=== PATIENT | female | born 1960 | race Hispanic/Latino ===

== ENCOUNTER → 2019-08-17 | Outpatient (CLI) | payer OTHER ==
[~2019-08-17] VITALS: Ht 157.5 cm; Wt 96.2 kg
[~2019-08-17] MED LIST: REGADENOSON 0.4 MG/5 ML PF SYG IVP SCH
== END | disposition home or self-care (01) ==
LOC: SHCH 08:32
PROVIDERS: ATTEND Internal Medicine Cardiovascular Disease
DX: I25.10 Atherosclerotic heart disease of native coronary artery without angina pectoris (principal)
CPT/HCPCS: 78452; 93017; 96374; A9500 ×2; J2785

== ENCOUNTER 2023-04-29 21:20 | Emergency (ER) | payer OTHER ==
[~2023-04-29] VITALS: Ht 157.5 cm; Wt 93.4 kg
[2023-04-29 21:22] VITALS: BP 174/96
[2023-04-29 22:12] LABS: BASOPHILS % (AUTO) 0.4 % (0.0-5.0); EOSINOPHILS % (AUTO) 1.7 % (0.0-8.0); HEMATOCRIT 37.2 % (36-48); LYMPHOCYTES % (AUTO) 27.4 % (21.0-51.0); MEAN CORPUSCULAR HEMOGLOBIN 28.6 pg (27.0-33.0); MEAN CORPUSCULAR HGB CONC 33.9 g/dL (32.0-36.0); MEAN CORPUSCULAR VOLUME 84.5 fL (79-99); MONOCYTES % (AUTO) 5.9 % (3.0-13.0); NEUTROPHILS % (AUTO) 64.4 % (40.0-77.0); PLATELET COUNT (AUTO) 204 K/uL (130-400); RED CELL DISTRIBUTION WIDTH 13.2 % (11.0-15.5); WHITE BLOOD COUNT (AUTO) 13.3 K/uL (4.8-10.8)
[2023-04-29 22:23] LABS: CREATININE 0.8 mg/dL (0.5-1.5); POTASSIUM 3.8 mmol/L (3.5-5.1)
[2023-04-29 22:28] LABS: ALBUMIN 3.4 g/dL (3.5-5.0); TOTAL PROTEIN, SERUM 7.8 g/dL (6.0-8.3)
[2023-04-29 22:28] LABS: APPEARANCE,URINE CLEAR (CLEAR); BILIRUBIN,URINE NEGATIVE (NEGATIVE); COLOR,URINE LIGHT-YELLOW (YELLOW); GLUCOSE, URINE (UA) >=1000 mg/dL (NEGATIVE); KETONES,URINE NEGATIVE (NEGATIVE); LEUKOCYTE ESTERASE ,URINE 250 Leu/uL (NEGATIVE); NITRATE,URINE NEGATIVE (NEGATIVE); OCCULT BLOOD,URINE NEGATIVE (NEGATIVE); PROTEIN,URINE NEGATIVE (NEGATIVE); UROBILINOGEN,URINE 0.2 mg/dL (0.2-1.0)
[2023-04-29 22:31] LABS: BACTERIA,URINE RARE /HPF (None Seen); SQUAMOUS EPITHELIAL CELL,UR FEW /HPF (0-2)
[2023-04-29] MEDS ORDERED: SULF1TAB42 PO (23:12)
[2023-04-29] MEDS ORDERED: CEFTRIAXONE 1G VIAL IVPB ONE (23:30)
== END 2023-04-29 23:42 | disposition home or self-care (01) ==
LOC: EDH 21:20
DX: N39.0 Urinary tract infection, site not specified (principal); E11.9 Type 2 diabetes mellitus without complications; E78.00 Pure hypercholesterolemia, unspecified; I10 Essential (primary) hypertension; Z88.0 Allergy status to penicillin
CPT/HCPCS: 99284; 96365; 80053; 85025; 87088; 81001; 36415; J0696

== ENCOUNTER 2024-12-25 11:27 | Emergency (ER) | payer OTHER ==
[~2024-12-25] VITALS: Ht 157.5 cm; Wt 98.9 kg
[~2024-12-25 11:27] MED LIST changes: -REGADENOSON 0.4 MG/5 ML PF SYG IVP SCH; +SULF1TAB42 PO
--- NOTE | 2024-12-25 11:53 | ERN ---
General Chief Complaint: Mechanical Fall Stated Complaint: MECHANICAL FALL,MULTIPLE COMPLAINTS Time Seen by MD: 11:29 Time Seen by Midlevel: 11:29 Source: patient History of Present Illness Initial Comments The patient is a 64-year-old female with a past medical history of seizures on topiramate presenting to the emergency department following a fall. The patient's states the fall was unwitnessed. She was in her room walking when she became slightly lightheaded and fell hitting the back of her head. The patient remembers the entire event. Family quickly came to her aid and she was found in the floor. No seizure-like activities reported. Patient reports taking her seizure medication as prescribed. Denies seeing a neurologist recently. Her last seizure was approximately four months ago. On arrival she states she has pain to her entire left side of her body. She also reports pain to her head and neck. Allergies: Coded Allergies: Iodinated Contrast Media (Unverified Allergy, Unknown, 12/25/24) penicillin V (Unverified Allergy, Unknown, 08/16/19) Home Meds Active Scripts Sulfamethoxazole/Trimethoprim (Bactrim Ds Tablet) 1 Each Tablet, 1 TAB PO BID for 7 Days, #14 TAB 0 Refills Prov:JOSEPARTH Rodriges DEMOLITIONIST 04/29/23 Past Medical History Past Medical History: Diabetes-Type II, High Cholesterol, Heart Disease, Hypertension, Seizure Medical History Other: HX OF BACK PAIN, NEUROPATHY Past Surgical History: Hysterectomy, Other Surgical History Other: HX OF BACK PAIN, WRIST, SHOULDER ROS Dictation CONSTITUTIONAL: Negative except for HPI HEAD/FACE: Negative except for HPI EENT: Negative except for HPI RESPIRATORY: Negative except for HPI GASTROINTESTINAL/ABDOMINAL: Negative except for HPI GENITOURINARY: Negative except for HPI MUSCULOSKELETAL: Negative except for HPI INTEGUMENTARY: Negative except for HPI NEUROLOGICAL/PSYCH: Negative except for HPI HEMATOLOGIC/LYMPHATIC: Negative except for HPI All Systems Negative, Except as noted above. 13 point review of systems assessed and all negative except for above. Physical Exam Physical Exam Dictation Vital Signs reviewed General Appearance: Alert, oriented x 3, no acute distress, morbidly obese Head and Face: non-traumatic. Eyes: PERRL, pink conjunctivas, eyelid no trauma, anterior chamber with arcus senilis. Ears: Pinnas intact and no signs of trauma or erythema ear canals clear and no discharge TM no erythema Nose: No discharge, no bleeding. Oropharynx: Mouth normal, tongue pink, pharynx clear,no erythema, tonsils no exudates, no abscesses noted, mucous membrane moist Neck: Supple, non-tender, no thyromegaly, no masses, no JVD, no bruits Breast:Deferred Chest:No tenderness, no crepitus, no paradoxical movement, no retractions Lungs:Clear, well-ventilated, symmetric, no rales, no wheezing, no rhonchi, no stridor, good breath sounds bilaterally Heart: Regular rate, regular rhythm, no murmur, no gallops Vascular: no peripheral edema, Abdomen: Soft, positive bowel sounds, nondistended, no guarding, nontender, no rebound, no masses no hepatomegaly, no splenomegaly, no Burgos's sign, no hernias. Rectal: Deferred Genital: Deferred Neurological: Normal speech, motor function intact, sensory function intact Musculoskeletal: Neck nontender, full range of motion, back nontender, full range of motion, Extremities: Tenderness overlying the anterior left shoulder, limited range of motion secondary to pain, tenderness over the left lateral wrist and at the base of the 1st digit of the left hand, range of motion restricted secondary to pain, sensation is intact to left upper extremity Skin: Color pink, dry, no turgor, no rash, no lacerations, no abrasions, no contusions. Lymphatic: Deferred Results Laboratory and Microbiology Lab and Micro Result Laboratory Tests Test 12/25/24 14:15 12/25/24 14:42 White Blood Count 7.9 K/uL (4.8-10.8) Red Blood Count 4.39 MIL/uL (4.00-5.50) Hemoglobin 12.1 g/dL (12.0-16.0) Hematocrit 36.9 % (36-48) Mean Corpuscular Volume 84.1 fL (79-99) Mean Corpuscular Hemoglobin 27.6 pg (27.0-33.0) Mean Corpuscular Hemoglobin Concent 32.8 g/dL (32.0-36.0) Red Cell Distribution Width 13.2 % (11.0-15.5) Platelet Count 167 K/uL (130-400) Mean Platelet Volume 11.9 fL (7.5-10.5) H Immature Granulocyte % (Auto) 0.3 % (0-1) Neutrophils (%) (Auto) 58.5 % (40.0-77.0) Lymphocytes (%) (Auto) 31.0 % (21.0-51.0) Monocytes (%) (Auto) 7.2 % (3.0-13.0) Eosinophils (%) (Auto) 2.5 % (0.0-8.0) Basophils (%) (Auto) 0.5 % (0.0-5.0) Neutrophils # (Auto) 4.6 K/uL (1.8-7.7) Lymphocytes # (Auto) 2.4 K/uL (1.0-4.8) Monocytes # (Auto) 0.6 K/uL (0.1-1.0) Eosinophils # (Auto) 0.20 K/uL (0.00-0.70) Basophils # (Auto) 0.04 K/uL (0.00-0.20) Absolute Immature Granulocyte (auto 0.02 K/uL (0-1) Nucleated Red Blood Cells 0.0 % (0.0-0.19) Sodium Level 138 mmol/L (136-145) Potassium Level 4.0 mmol/L (3.5-5.1) Chloride Level 102 mmol/L (101-111) Carbon Dioxide Level 31 mmol/L (21-32) Blood Urea Nitrogen 14 mg/dL (7-18) Creatinine 0.7 mg/dL (0.5-1.0) Glomerular Filtration Rate Calc 97 mL/min (>90) Random Glucose 289 mg/dL (70-105) H Total Calcium 9.1 mg/dL (8.5-10.1) Magnesium Level 1.80 mg/dL (1.80-2.40) Total Creatine Kinase 133 U/L (21-232) Troponin I High Sensitivity 6 ng/L (4-50) Urine Color LIGHT-YELLOW (YELLOW) Urine Appearance CLEAR (CLEAR) Urine pH 6.0 (5.0-8.0) Urine Specific [place] 1.025 (1.001-1.031) Urine Protein NEGATIVE mg/dL (NEGATIVE) Urine Glucose (UA) >=1000 mg/dL (NEGATIVE) H Urine Ketones NEGATIVE mg/dL (NEGATIVE) Urine Occult Blood NEGATIVE (NEGATIVE) Urine Nitrate NEGATIVE (NEGATIVE) Urine Bilirubin NEGATIVE mg/dL (NEGATIVE) Urine Urobilinogen 0.2 mg/dL (0.2-1.0) Urine Leukocyte Esterase 75 Sotero/uL (NEGATIVE) H Urine RBC 2-5 /HPF (0-1) H Urine WBC 6-10 /HPF (0-1) H Urine Squamous Epithelial Cells RARE /HPF (0-2) Urine Bacteria None /HPF (None Seen) Labs Reviewed?: Yes MDM MDM: Differential diagnosis: Fall, fracture, contusion, closed head injury, con cussion, intracranial bleed, electrolyte abnormality There are no social concerns with this patient. Prescription drug management Prescriptions will include: Toradol Medical management and examination interpretation discussions were had by me with other qualified healthcare professionals as indicated for the patient's care. ED Course Orders Procedure Category Date Status Time 12 Lead Ekg Tracing- EKG 12/25/24 Resulted Technical 11:48 Cbc With Differential LAB 12/25/24 Complete 11:48 Basic Metabolic Panel LAB 12/25/24 Complete 11:48 Troponin I High LAB 12/25/24 Complete Sensitivity 11:48 Urinalysis Profile LAB 12/25/24 Complete 11:48 Creatine Kinase, Total LAB 12/25/24 Complete 11:48 Magnesium LAB 12/25/24 Complete 11:48 Ct Head/Brain W/O CT 12/25/24 Resulted Contrast 11:48 Ct Cervical Spine W/O CT 12/25/24 Resulted Contrast 11:48 Shoulder Comp 2+Vws Lt RAD 12/25/24 Resulted 11:48 Wrist Comp 3+Vws Lt RAD 12/25/24 Resulted 11:48 Hand 3+Vws Lt RAD 12/25/24 Resulted 11:48 Pelvis 1-2vws RAD 12/25/24 Resulted 11:48 Knee 3vws Lt RAD 12/25/24 Resulted 11:48 Ketorolac PHA 12/25/24 Complete Tromethamine 15mg/Ml 15:00 Culture Urine MEL 12/25/24 In Process 15:14 Morphine 2mg Syg PHA 12/25/24 Complete (Morphine 2mg Syg) 15:30 Ondansetron 4mg Inj PHA 12/25/24 Complete (Zofran 4mg Inj) 15:30 Current Medications Medications (Trade) Dose Ordered Sig/Segundo Route PRN Reason Start Time Stop Time Status Last Admin Dose Admin Ketorolac Tromethamine (toRADol) 15 mg ONCE ONCE IV 12/25/24 15:00 12/25/24 15:01 DC 12/25/24 14:45 Morphine Sulfate (morPHINE 2MG SYG) 2 mg ONCE ONCE IVP 12/25/24 15:30 12/25/24 15:31 DC 12/25/24 15:41 Ondansetron HCl (zoFRAN 4MG INJ) 4 mg ONCE ONCE IVP 12/25/24 15:30 12/25/24 15:31 DC 12/25/24 15:41 Vital Signs Date Time Temp Pulse Resp B/P (MAP) Pulse Ox O2 Delivery O2 Flow Rate FiO2 12/25/24 14:33 74 14 161/81 98 Room Air* 0 21 12/25/24 11:41 97.9 73 16 156/79 97 Room Air 0 [place] [address] [place] [phone] IMAGING REPORT Signed PATIENT: BÁRBARA ZAMUDIO MR#: [id number] : 1960 SEX: F AGE: 64 LOCATION: EDH ORDER 115 STATUS: REG ER [facility] REPORT#: [id number] SERVICE 1143 REASON: fall ORDERING PHYSICIAN: FATIMAH AMBRIZ PROCEDURE: WRST 3V LT - WRIST COMP 3+VWS LT Exam Type: WRIST COMP 3+VWS LT Clinical Information: fall Comparison: None Findings: The bone examination is unremarkable. No fractures or dislocations are seen. No radiopaque foreign bodies are noted. Soft tissues are preserved. IMPRESSION: Normal examination. DICTATED BY: NORMA MAZA MD DATE: 12/25/24 1323 ELECTRONICALLY SIGNED BY: NORMA MAZA MD DATE: 12/25/24 1327 [place] [id number] [id number] IMAGING REPORT Signed PATIENT: BÁRBARA ZAMUDIO MR#: [id number] : 1960 SEX: F AGE: 64 LOCATION: EDH ORDER 1151 STATUS: REG ER [facility] REPORT#: [id number] SERVICE 1148 REASON: fall ORDERING PHYSICIAN: FATIMAH AMBRIZ PROCEDURE: SHOL 2V LT - SHOULDER COMP 2+VWS LT Exam Type: SHOULDER COMP 2+VWS LT Clinical Information: fall Comparison: None FINDINGS: The acromioclavicular joint shows hypertrophy, which may impinge upon the rotator cuff tendon. The glenohumeral joint is preserved. Visualized portions of the humerus, the scapula, and the clavicle as well as the upper ribcage are unremarkable. No pulmonary pathology is noted in the visualized portions of the upper lobe. The soft tissues are preserved. There are no other gross abnormalities. IMPRESSION: Degenerative changes of the acromioclavicular joint with hypertrophy. DICTATED BY: NORMA MAZA MD DATE: 12/25/241325 ELECTRONICALLY SIGNED BY: NORMA MAZA MD DATE: 12/25/241327 [place] [address] [address] [id number] IMAGING REPORT Signed PATIENT: BÁRBARA ZAMUDIO MR#: [id number] : 1960 SEX: F AGE: 64 LOCATION: ED ORDER 50 STATUS: REG [place] [address] REPORT#: [id number] SERVICE 114 REASON: fall ORDERING PHYSICIAN: FATIMAH AMBRIZ PROCEDURE: PELVIS - PELVIS 1-2VWS Exam Type: PELVIS 1-2VWS Clinical Information: fall Comparison: None Findings: The bone examination is unremarkable. No fractures or dislocations are seen. No radiopaque foreign bodies are noted. Soft tissues are preserved. IMPRESSION: Normal examination. DICTATED BY: NORMA MAZA MD DATE: 12/25/241325 ELECTRONICALLY SIGNED BY: NORMA MAZA MD DATE: 12/25/241327 [place] [address] [address] [id number] IMAGING REPORT Signed PATIENT: BÁRBARA ZAMUDIO MR#: [id number] : 1960 SEX: F AGE: 64 LOCATION: ED ORDER 115 STATUS: REG ER [facility] REPORT#: [id number] SERVICE 1148 REASON: fall ORDERING PHYSICIAN: FATIMAH AMBRIZ PROCEDURE: KNEE 3V LT - KNEE 3VWS LT Exam Type: KNEE 3VWS LT Clinical Information: fall Comparison: None Findings: The bone examination is unremarkable. No fractures or dislocations are seen. No radiopaque foreign bodies are noted. Soft tissues are preserved. IMPRESSION: Normal examination. DICTATED BY: NORMA MAZA MD DATE: 12/25/24 1323 ELECTRONICALLY SIGNED BY: NORMA MAZA MD DATE: 12/25/[address] [phone] IMAGING REPORT Signed PATIENT: BÁRBARA ZAMUDIO MR#: [id number] : 1960 SEX: F AGE: 64 LOCATION: EDH ORDER 1151 STATUS: REG ER REPORT#: [id number] SERVICE 1148 REASON: fall ORDERING PHYSICIAN: FATIMAH AMBRIZ PROCEDURE: HEAD WO - CT HEAD/BRAIN W/O CONTRAST Exam Type: CT HEAD/BRAIN W/O CONTRAST Clinical Information: fall Comparison: None CT Dose Index (CTDI): 57.33 mGy Dose Length Product (DLP): 956.79 total mGy-cm Findings: The examination is unremarkable. Stack-white matter junction is preserved. No intra or extra axial lesions or fluid collections are seen. Specifically, stack and white matter are normal in signal characteristics with normal caliber of ventricles and periventricular cisterns with no evidence of intra or or extra-axial hemorrhage, lacunar infarct, or major territorial infarct, mass, or other abnormality. There are no infarcts. There are no hemorrhages. Periventricular white matter locations are preserved. The orbital contents and structures of the posterior fossa are intact. Impression: Normal CT of the head. This study was performed using dose reduction techniques to include automated exposure control and/or adjustment of the mA and/or kV according to patient size. DICTATED BY: NORMA MAZA MD DATE: 12/25/24 1304 ELECTRONICALLY SIGNED BY: NORMA MAZA MD DATE: 12/25/24 1307 [facility] [address] [place] [phone] IMAGING REPORT Signed PATIENT: BÁRBARA ZAMUDIO MR#: [id number] : 1960 SEX: F AGE: 64 LOCATION: EDH ORDER 115 STATUS: REG ER [facility] REPORT#: [id number] SERVICE 1148 REASON: fall ORDERING PHYSICIAN: FATIMAH AMBRIZ PROCEDURE: HAND 3V LT - HAND 3+VWS LT Exam Type: HAND 3+VWS LT Clinical Information: fall Comparison: None Findings: The bone examination is unremarkable. No fractures or dislocations are seen. No radiopaque foreign bodies are noted. Soft tissues are preserved. IMPRESSION: Normal examination. DICTATED BY: NORMA MAZA MD DATE: 12/25/24 132 ELECTRONICALLY SIGNED BY: NORMA MAZA MD DATE: 12/25/24 132 [place] [address] [place] [id number] IMAGING REPORT Signed PATIENT: BÁRBARA ZAMUDIO MR#: [id number] : 1960 SEX: F AGE: 64 LOCATION: ED ORDER 50 STATUS: REG ER [facility] REPORT#: [id number] SERVICE 1145 REASON: fall ORDERING PHYSICIAN: FATIMAH AMBRIZ PROCEDURE: C SPIN WO - CT CERVICAL SPINE W/O CONTRAST Exam Type: CT cervical spine without contrast Clinical Information: fall Comparison: None Technique: Spiral axial images were performed from the base of the skull down to the thoracic vertebral bodies. Both sagittal and coronal reconstructions were performed. CT Dose Index (CTDI): 12.85 mGy Dose Length Product (DLP): 282.6 total Findings: There are degenerative changes. Degenerative disc disease is noted at multiple levels. There is adequate alignment and preservation of normal cervial lordosis. There is facet hypertrophy at multiple levels. IMPRESSION: Degenerative changes as noted. No acute pathology. No fractures seen. This study was performed using dose reduction techniques to include automated exposure control and/or adjustment of the mA and/or kV according to patient size. DICTATED BY: NORAM MAZA MD DATE: 12/25/24 1305 ELECTRONICALLY SIGNED BY: NORMA MAZA MD DATE: 12/25/24 1310 DX & DISP Disposition: Discharge Departure Impression: Primary Impression: Fall Additional Impressions: Closed head injury, Contusion of left wrist, Contusion of left shoulder, Contusion of left hip Condition: Stable Scripts Ketorolac Tromethamine (Ketorolac Tromethamine) 10 Mg Tablet 1 TAB PO BID for pain for 5 Days, #10 TAB 0 Refills Prov: FATIMAH AMBRIZ 12/25/24 Additional Instructions: Your blood work today is unremarkable. Your cardiac enzymes are negative. Your CT scan of the head and neck are negative for any acute fracture. Your x-ray of the left wrist, shoulder, hip, left wrist, and left knee do not show any evidence of a fracture. Follow up with your primary care doctor in 2-3 days for repeat evaluation. Return to the ER for any new or worsening symptoms Referrals: MAGDALENO NATH MD (PCP) I have reviewed the case, and I agree with, Diagnosis and Plan I performed the substantive portion of the visit. I have reviewed and personally made and approve the management plan that is documented in the note by myself or the MOJGAN. I acknowledge for responsibility for the patient's management plan. FATIMAH AMBRIZ Dec 25, 2024 11:53
--- NOTE | 2024-12-25 13:00 | NUR ---
BACK FROM CT AT THIS TIME
--- NOTE | 2024-12-25 13:07 | HMCIMG ---
Exam Type: CT HEAD/BRAIN W/O CONTRAST Clinical Information: fall Comparison: None CT Dose Index (CTDI): 57.33 mGy Dose Length Product (DLP): 956.79 total mGy-cm Findings: The examination is unremarkable. Stack-white matter junction is preserved. No intra or extra axial lesions or fluid collections are seen. Specifically, stack and white matter are normal in signal characteristics with normal caliber of ventricles and periventricular cisterns with no evidence of intra or or extra-axial hemorrhage, lacunar infarct, or major territorial infarct, mass, or other abnormality. There are no infarcts. There are no hemorrhages. Periventricular white matter locations are preserved. The orbital contents and structures of the posterior fossa are intact. Impression: Normal CT of the head. This study was performed using dose reduction techniques to include automated exposure control and/or adjustment of the mA and/or kV according to patient size.
--- NOTE | 2024-12-25 13:10 | EKG ---
[facility] Test Date: 2024-12-25 Test Time: 13:05:19 Pat Name: BÁRBARA ZAMUDIO Department: ED Room: Gender: F [employer]: [id number] : 1960 Requested By: FATIMAH AMBRIZ Order Number: [id number] Reading MD: Urbano Denise Measurements Intervals [place] Rate: 66 P: 20 WI: 140 QRS: -3 QRSD: 80 T: 40 QT: 384 QTc: 404 Interpretive Statements Sinus rhythm Low voltage, precordial leads No previous ECG available for comparison Electronically Signed On 12-25-2024 14:20:25 SENIOR VICE PRESIDENT AND CHIEF INFORMATION OFFICER by Urbano Denise Please click the below link to view image of tracing.
--- NOTE | 2024-12-25 13:10 | HMCIMG ---
Exam Type: CT cervical spine without contrast Clinical Information: fall Comparison: None Technique: Spiral axial images were performed from the base of the skull down to the thoracic vertebral bodies. Both sagittal and coronal reconstructions were performed. CT Dose Index (CTDI): 12.85 mGy Dose Length Product (DLP): 282.6 total Findings: There are degenerative changes. Degenerative disc disease is noted at multiple levels. There is adequate alignment and preservation of normal cervial lordosis. There is facet hypertrophy at multiple levels. IMPRESSION: Degenerative changes as noted. No acute pathology. No fractures seen. This study was performed using dose reduction techniques to include automated exposure control and/or adjustment of the mA and/or kV according to patient size.
--- NOTE | 2024-12-25 13:27 | HMCIMG ---
Exam Type: KNEE 3VWS LT Clinical Information: fall Comparison: None Findings: The bone examination is unremarkable. No fractures or dislocations are seen. No radiopaque foreign bodies are noted. Soft tissues are preserved. IMPRESSION: Normal examination.
--- NOTE | 2024-12-25 13:27 | HMCIMG ---
Exam Type: WRIST COMP 3+VWS LT Clinical Information: fall Comparison: None Findings: The bone examination is unremarkable. No fractures or dislocations are seen. No radiopaque foreign bodies are noted. Soft tissues are preserved. IMPRESSION: Normal examination.
--- NOTE | 2024-12-25 13:27 | HMCIMG ---
Exam Type: HAND 3+VWS LT Clinical Information: fall Comparison: None Findings: The bone examination is unremarkable. No fractures or dislocations are seen. No radiopaque foreign bodies are noted. Soft tissues are preserved. IMPRESSION: Normal examination.
--- NOTE | 2024-12-25 13:28 | HMCIMG ---
Exam Type: SHOULDER COMP 2+VWS LT Clinical Information: fall Comparison: None FINDINGS: The acromioclavicular joint shows hypertrophy, which may impinge upon the rotator cuff tendon. The glenohumeral joint is preserved. Visualized portions of the humerus, the scapula, and the clavicle as well as the upper ribcage are unremarkable. No pulmonary pathology is noted in the visualized portions of the upper lobe. The soft tissues are preserved. There are no other gross abnormalities. IMPRESSION: Degenerative changes of the acromioclavicular joint with hypertrophy.
--- NOTE | 2024-12-25 13:28 | HMCIMG ---
Exam Type: PELVIS 1-2VWS Clinical Information: fall Comparison: None Findings: The bone examination is unremarkable. No fractures or dislocations are seen. No radiopaque foreign bodies are noted. Soft tissues are preserved. IMPRESSION: Normal examination.
[2024-12-25 14:29] LABS: BASOPHILS # (AUTO) 0.04 K/uL (0.00-0.20); BASOPHILS % (AUTO) 0.5 % (0.0-5.0); EOSINOPHILS % (AUTO) 2.5 % (0.0-8.0); HEMATOCRIT 36.9 % (36-48); IMMATURE GRANULOCYTE ABSOLUTE 0.02 K/uL (0-1); LYMPHOCYTES # (AUTO) 2.4 K/uL (1.0-4.8); MEAN CORPUSCULAR HEMOGLOBIN 27.6 pg (27.0-33.0); MEAN CORPUSCULAR HGB CONC 32.8 g/dL (32.0-36.0); MEAN CORPUSCULAR VOLUME 84.1 fL (79-99); MONOCYTES # (AUTO) 0.6 K/uL (0.1-1.0); MONOCYTES % (AUTO) 7.2 % (3.0-13.0); NEUTROPHILS # (AUTO) 4.6 K/uL (1.8-7.7); NEUTROPHILS % (AUTO) 58.5 % (40.0-77.0); PLATELET COUNT (AUTO) 167 K/uL (130-400); RED BLOOD CELL COUNT(AUTO) 4.39 MIL/uL (4.00-5.50); RED CELL DISTRIBUTION WIDTH 13.2 % (11.0-15.5); WHITE BLOOD COUNT (AUTO) 7.9 K/uL (4.8-10.8)
[2024-12-25] MEDS: ketOROlac 15MG/ML VIAL (15MG/ML) IV ONE (14:45)
[2024-12-25 14:48] LABS: CREATININE 0.7 mg/dL (0.5-1.0)
[2024-12-25 14:52] LABS: MAGNESIUM 1.8 mg/dL (1.80-2.40)
[2024-12-25 15:14] LABS: ADD UA MICROSCOPIC YES; APPEARANCE,URINE CLEAR (CLEAR); BILIRUBIN,URINE NEGATIVE (NEGATIVE); COLOR,URINE LIGHT-YELLOW (YELLOW); GLUCOSE, URINE (UA) >=1000 mg/dL (NEGATIVE); KETONES,URINE NEGATIVE (NEGATIVE); LEUKOCYTE ESTERASE ,URINE 75 Leu/uL (NEGATIVE); NITRATE,URINE NEGATIVE (NEGATIVE); OCCULT BLOOD,URINE NEGATIVE (NEGATIVE); PROTEIN,URINE NEGATIVE (NEGATIVE); UROBILINOGEN,URINE 0.2 mg/dL (0.2-1.0)
[2024-12-25 15:18] LABS: SQUAMOUS EPITHELIAL CELL,UR RARE /HPF (0-2)
[2024-12-25] MEDS: morPHINE 2 MG SYG IVP ONE (15:41)
[2024-12-25] MEDS: ondanSETRON 4MG INJ IVP ONE (15:41)
[2024-12-25] MEDS ORDERED: KETO10TA2 PO (16:05)
[2024-12-25 16:09] VITALS: BP 152/74; PULSE 80; RESP 14; TEMP 98; O2SAT 99
== END 2024-12-25 16:29 | disposition home or self-care (01) ==
LOC: EDH 11:27
DX: S40.012A Contusion of left shoulder, initial encounter (principal); S60.212A Contusion of left wrist, initial encounter; S70.02XA Contusion of left hip, initial encounter; S09.90XA Unspecified injury of head, initial encounter; E78.00 Pure hypercholesterolemia, unspecified; I10 Essential (primary) hypertension; E11.9 Type 2 diabetes mellitus without complications; Z88.0 Allergy status to penicillin; Z90.710 Acquired absence of both cervix and uterus; Z91.041 Radiographic dye allergy status; W18.39XA Other fall on same level, initial encounter; Y93.89 Activity, other specified; Y92.89 Other specified places as the place of occurrence of the external cause; Y99.8 Other external cause status
CPT/HCPCS: 99285; 70450; 96374; 96375; 82550; 83735; 84484; 80048; 85025; 87086; 81001; 36415; 73130; 73562; 72170; 73030; 73110; 72125; 93005; J1885; J2270; J2405